=== PATIENT | female | born 1995 | race Hispanic/Latino ===

== ENCOUNTER 2017-10-05 07:11 | Emergency (ER) | payer OTHER ==
--- NOTE | 2017-10-05 07:36 | C.PDOC ---
History Of Present Illness 22 year old female presents to ED for evaluation of sudden onset of left lower back pain radiating to left leg upon waking up this morning. Notes pain is worse when sitting. Denies having similar symptoms in the past. She notes sitting in the boat yesterday. Otherwise, denies trauma, injury, heavy lifting, urinary symptoms, abdominal pain, or fever. Time Seen by Provider: 10/05/17 07:28 Chief Complaint (Nursing): Back Pain History Per: Patient History/Exam Limitations: no limitations Onset/Duration Of Symptoms: Hrs Current Symptoms Are (Timing): Still Present Quality Of Discomfort: "Pain" Previous Symptoms: denies: Prior Injury Associated Symptoms: None. denies: Incontinence, New Weakness, New Numbness Exacerbating Factor(s): Sitting Recent travel outside of the [place]: No Additional History Per: Patient Past Medical History Reviewed: Historical Data, Nursing Documentation, Vital Signs Vital Signs: Last Vital Signs Temp 98.4 F 10/05/17 07:18 Pulse 100 H 10/05/17 07:18 Resp 16 10/05/17 07:18 BP 128/86 10/05/17 07:18 Pulse Ox 96 10/05/17 07:54 Family History: States: Unknown Family Hx - Social History Hx Alcohol Use: No Hx Substance Use: No Review Of Systems Except As Marked, All Systems Reviewed And Found Negative. Constitutional: Negative for: Fever, Chills Gastrointestinal: Negative for: Nausea, Vomiting, Abdominal Pain Genitourinary: Negative for: Dysuria, Frequency, Incontinence, Hematuria, Vaginal Discharge Musculoskeletal: Positive for: Back Pain (left lower), Leg Pain (left) Neurological: Negative for: Weakness, Numbness Physical Exam - Physical Exam Appears: Non-toxic, No Acute Distress Skin: Normal Color, Warm, Dry Head: Atraumatic, Normacephalic Eye(s): bilateral: Normal Inspection Oral Mucosa: Moist Neck: Normal ROM, Supple Cardiovascular: Rhythm Regular, No Murmur Respiratory: Normal Breath Sounds, No Rales, No Rhonchi, No Wheezing Gastrointestinal/Abdominal: Soft, No Tenderness Back: Normal Inspection, No CVA Tenderness, No Vertebral Tenderness, No Decreased ROM, No Paraspinal Tenderness, No Straight Leg Raising Extremity: Normal ROM, No Tenderness, Capillary Refill (less than 2 seconds), No Deformity Extremity: Bilateral: Atraumatic Pulses: Left Dorsalis Pedis: Normal Neurological/Psych: Oriented x3, Normal Speech, Normal Motor, Normal Sensation ED Course And Treatment O2 Sat by Pulse Oximetry: 96 (RA) Pulse Ox Interpretation: Normal Medical Decision Making Medical Decision Making: Impression: 22 year old female with left lower back pain radiating to left leg since AM Plan: Urinalysis Flexeril Lidoderm Toradol Reassess: On reassessment, patient is resting comfortably, with mild improvement of back pain. Patient remains afebrile, with no bony tenderness, extremity numbness or weakness, or abdominal pain. No clinical signs of zoster, pyelonephritis or intra-abdominal infection. No clinical indication for xray. Patient is ambulatory in the emergency department with no signs of discomfort. Patient was advised to follow up with physician/clinic in 1-2 days Disposition Counseled Patient/Family Regarding: Diagnosis, Need For Followup, Rx Given - Disposition [facility] Disposition: HOME/ ROUTINE Disposition Time: 09:06 Condition: GOOD Additional Instructions: Please apply heat to area of pain Take Tylenol or Ibuprofen as needed for pain Take Flexeril as needed for muscle pain, may cause drowsiness Follow up with your primary medical doctor or clinic in 2-5 days for further evaluation. Return to the emergency department at any time if symptoms persist or worsen. Prescriptions: Cyclobenzaprine [Cyclobenzaprine HCl] 10 mg PO TID #30 tab Ibuprofen [Motrin] 600 mg PO Q8 #30 tab Forms: [employer] (Maori) - POA Present On Arrival: None - Clinical Impression Clinical Impression: Low back pain - PA / COAT AGENT / Resident Statement MD/DO has reviewed & agrees with the documentation as recorded. - Scribe Statement The provider has reviewed the documentation as recorded by the Scribe KP All medical record entries made by the Scribe were at my direction and personally dictated by me. I have reviewed the chart and agree that the record accurately reflects my personal performance of the history, physical exam, medical decision making, and the department course for this patient. I have also personally directed, reviewed, and agree with the discharge instructions and disposition.
[2017-10-05] MEDS ORDERED: Lidocaine 5% Patch TD STA (07:51)
[2017-10-05 07:55] LABS: SQUAMOUS EPITHIAL < 1 /hpf (0-5); URINE BILIRUBIN NEGATIVE (NEGATIVE); URINE BLOOD NEGATIVE (NEGATIVE); URINE CLARITY Clear (Clear); URINE COLOR Yellow (YELLOW); URINE GLUCOSE (UA) NORMAL (Normal); URINE LEUKOCYTE ESTERASE NEG Leu/uL (Negative); URINE PROTEIN NEGATIVE (NEGATIVE); URINE UROBILINOGEN NORMAL mg/dL (0.2-1.0)
[2017-10-05] MEDS ORDERED: Lidocaine 5% Patch TD ONE (08:23)
[2017-10-05 09:10] VITALS: BP 112/77; PULSE 81; RESP 18; TEMP 98.2; O2SAT 98
== END 2017-10-05 09:12 | disposition home or self-care (01) ==
LOC: C.ER 07:11
DX: M54.5 Low back pain (principal)
CPT/HCPCS: 81001; 96372; 99284; J1885